=== PATIENT | male | born 1995 | race American Indian/Alaskan Native ===

== ENCOUNTER 2019-10-03 22:33 | Emergency (ER) | payer SELFPAY ==
--- NOTE | 2019-10-04 00:03 | Emergency Department Report ---
ED Animal Bite HPI - General Chief Complaint: Animal Bite Stated Complaint: DOG BITE Time Seen by Provider: 10/03/19 23:57 Source: patient Mode of arrival: Ambulatory Limitations: No Limitations - History of Present Illness Initial Comments: 24 year old -[place] male presents to the emergency room stating that he was bitten by his own dog approximately 12 hours prior to arrival. Patient reports that the dog is not up-to-date on shots. Last shots were approximately 1 year ago. Right hand swelling a small amount of bleeding. MD Complaint: animal bite Onset/Timin -: hour(s) Right: Hand Animal: dog Animal Control Notified: No Description: household pet Mechanism: bite Severity scale (0 -10): 0 Associated Symptoms: erythema, other - Related Data Previous Rx's Medication Instructions Recorded Last Taken Type DOXYCYCLINE Hyclate [Vibramycin 100 mg PO BID #14 capsule 11/25/14 Unknown Rx CAP] Ibuprofen [Motrin] 800 mg PO Q8H PRN #30 tablet 11/25/14 Unknown Rx Amoxicillin/K Clav Tab [Augmentin 1 tab PO Q12HR 10 Days #20 tab 10/04/19 Unknown Rx 875 mg] Ibuprofen [Motrin 600 MG tab] 600 mg PO Q8H PRN #15 tablet 10/04/19 Unknown Rx Allergies Allergy/AdvReac Type Severity Reaction Status Date / Time No Known Allergies Allergy Verified 10/03/19 23:08 ED Review of Systems ROS: Stated complaint: DOG BITE Other details as noted in HPI ED Past Medical Hx - Past Medical History Previous Medical History?: No - Surgical History Past Surgical History?: No - Social History Smoking Status: Never Smoker Substance Use Type: Marijuana - Medications Home Medications: Home Medications Medication Instructions Recorded Confirmed Last Taken Type DOXYCYCLINE Hyclate [Vibramycin 100 mg PO BID #14 capsule 11/25/14 Unknown Rx CAP] Ibuprofen [Motrin] 800 mg PO Q8H PRN #30 tablet 11/25/14 Unknown Rx Amoxicillin/K Clav Tab [Augmentin 1 tab PO Q12HR 10 Days #20 tab 10/04/19 Unknown Rx 875 mg] Ibuprofen [Motrin 600 MG tab] 600 mg PO Q8H PRN #15 tablet 10/04/19 Unknown Rx ED Physical Exam - General Limitations: No Limitations General appearance: alert, in no apparent distress - Head Head exam: Present: atraumatic, normocephalic - Eye Eye exam: Present: normal appearance - ENT ENT exam: Present: mucous membranes moist - Expanded Upper Extremity Exam Right Hand Wrist exam: Present: tenderness, swelling, erythema Neuro motor exam: Present: wrist extension intact, thumb opposition intact, thumb adduction intact Neurosensory exam: Present: 2-point discrimination Vascular: Present: normal capillary refill - Neurological Exam Neurological exam: Present: alert, oriented X3 - Psychiatric Psychiatric exam: Present: normal affect, normal mood - Skin Skin exam: Present: warm, dry, intact, normal color. Absent: rash ED Course Vital Signs 10/03/19 10/04/19 10/04/19 23:04 01:25 01:40 Temperature 97.3 F L Pulse Rate 74 60 Respiratory 18 18 18 Rate Blood Pressure 133/71 125/70 [Right] O2 Sat by Pulse 100 98 Oximetry Critical care attestation.: If time is entered above; I have spent that time in minutes in the direct care of this critically ill patient, excluding procedure time. ED Disposition Clinical Impression: Dog bite of right hand Disposition: DC-01 TO HOME OR SELFCARE Is pt being admited?: No Does the pt Need Aspirin: No Condition: Stable Instructions: Animal Bite (ED) Additional Instructions: Complete antibiotics as prescribed pain medication as needed Prescriptions: Amoxicillin/K Clav Tab [Augmentin 875 mg] 1 tab PO Q12HR 10 Days #20 tab Ibuprofen [Motrin 600 MG tab] 600 mg PO Q8H PRN #15 tablet PRN Reason: Pain Referrals: PRIMARY CARE,MD [Primary Care Provider] - 3-5 Days Forms: Work/School Release Form(ED) ED Medical Decision Making - Radiology Data Radiology results: report reviewed Patient: TIEN MUÑOZ MR#: [id number] : 1995 Acct:[id number] Age/Sex: 24 / M ADM Date: 10/03/19 Loc: ED Attending Dr: Ordering Physician: JOSE ROBBINS Date of Service: 10/04/19 Procedure(s): XR hand 2V RT Accession Number(s): [id number] cc: JOSE ROBBINS Fluoro Time In Minutes: EXAMINATION: Right hand radiograph, 2 views, 10/04/2019 CLINICAL INFORMATION: Right hand trauma. Dog bite. COMPARISON: None. FINDINGS: There is mild soft tissue swelling of the right mid hand without evidence of acute bony fracture. Signer Name: April Reis MD Signed: 10/04/2019 12:45 AM Workstation Name: [id number] Transcribed By: EB Dictated By: April Reis MD Electronically Authenticated By: April Reis MD Signed Date/Time: 10/04/1944 DD/ TD/TT: - Medical Decision Making 24 year old -[place] male presents to the emergency room stating that he was bitten by his own dog approximately 12 hours prior to arrival. Patient reports that the dog is not up-to-date on shots. Last shots were approximately 1 year ago. Right hand swelling a small amount of bleeding.
--- NOTE | 2019-10-04 00:49 | XRay Report ---
EXAMINATION: Right hand radiograph, 2 views, 10/04/2019 CLINICAL INFORMATION: Right hand trauma. Dog bite. COMPARISON: None. FINDINGS: There is mild soft tissue swelling of the right mid hand without evidence of acute bony fra cture. Signer Name: April Reis MD Signed: 10/04/2019 12:45 AM Workstation Name: [id number]
[2019-10-04] MEDS ORDERED: TETANUS,DIPH,PERTUSS(ACELL) VACCINE 0.5 ML SYRINGE IM ONE (01:06)
[2019-10-04] MEDS ORDERED: IBUPROFEN 800 MG TAB PO ONE (01:06)
[2019-10-04 01:40] VITALS: BP 125/70
== END 2019-10-04 01:40 | disposition home or self-care (01) ==
LOC: ED 22:33
DX: S61.451A Open bite of right hand, initial encounter (principal); W54.0XXA Bitten by dog, initial encounter; Y93.89 Activity, other specified; Y92.89 Other specified places as the place of occurrence of the external cause; Y99.8 Other external cause status
CPT/HCPCS: 90471; 90715